=== PATIENT | female | born 1975 | race Caucasian/White ===

== ENCOUNTER 2016-11-25 23:05 | Inpatient (IN) | payer BC ==
[~2016-11-25] VITALS: Ht 162.6 cm; Wt 71.4 kg
[2016-11-25 23:37] LABS: microscopic required? NO
[2016-11-25 23:44] LABS: UA SPECIFIC GRAVITY <=1.005 (1.005-1.035); urine erythrocyte NEGATIVE (NEGATIVE)
[2016-11-25 23:52] LABS: BASOPHIL % 0.2 % (0-2); PLATELET COUNT 223 x10^3mcL (130-400); RED CELL DISTRIBUTION WIDTH 14.4 % (11.5-14.5)
[2016-11-25 23:55] LABS: CARBON DIOXIDE 25.6 mmol/L (21-32); CHLORIDE SERUM 106 mmol/L (98-107); CREATININE SERUM 0.7 mg/dL (0.6-1.0); GFR1 > 60 mL/min; GLUCOSE SERUM 118 mg/dL (74-106); SODIUM SERUM 138 mmol/L (136-145)
[2016-11-26 00:06] LABS: ALBUMIN 3.6 g/dL (3.4-5.0); ALKALINE PHOSPHATASE 41 U/L (46-116); ALT/SGPT 23 U/L (14-59); AST/SGOT 10 U/L (15-37); BILIRUBIN TOTAL 0.8 mg/dL (0.20-1.00); TOTAL PROTEIN, SERUM 6.7 g/dL (6.4-8.2)
[2016-11-26 01:38] LABS: FREE T4 0.97 ng/dL (0.76-1.46); FREE THYROXINE INDEX 2.4 ug/dL (1.4-4.5); T4(THYROXINE) 7.1 ug/dL (4.7-13.3)
[2016-11-26] MEDS ORDERED: CELEBREX200 MG PO (02:48)
[2016-11-26] MEDS ORDERED: HYDROCORTISONE PO (02:48)
[2016-11-26] MEDS ORDERED: NATURAL IRON65 MG PO (02:49)
[2016-11-26 03:15] VITALS: BP 117/55
[2016-11-26 03:15] LABS: MAGNESIUM 1.8 mg/dL (1.8-2.4); PHOSPHOROUS 3.1 mg/dL (2.5-4.9)
[2016-11-26 04:04] VITALS: BP 117/55
[2016-11-26 07:01] LABS: CALCIUM 8.3 mg/dL (8.5-10.1); CARBON DIOXIDE 25.1 mmol/L (21-32); CHLORIDE SERUM 104 mmol/L (98-107); CREATININE SERUM 0.7 mg/dL (0.6-1.0); GFR1 > 60 mL/min; GLUCOSE SERUM 135 mg/dL (74-106); MAGNESIUM 1.6 mg/dL (1.8-2.4); POTASSIUM SERUM 3.8 mmol/L (3.5-5.1); SODIUM SERUM 138 mmol/L (136-145)
[2016-11-26 07:38] LABS: BASOPHIL % 0.1 % (0-2); PLATELET COUNT 221 x10^3mcL (130-400); RED CELL DISTRIBUTION WIDTH 14.4 % (11.5-14.5)
[2016-11-26 07:45] VITALS: BP 124/77
[2016-11-26 08:52] LABS: AMPHETAMINE QUAL UR NONE DETECTED (NEG <=1000)
[2016-11-26 14:42] LABS: T3 TOTAL 0.82 ng/mL
[2016-11-26 17:00] VITALS: BP 118/67
[2016-11-26 22:22] VITALS: BP 113/62
[2016-11-27 05:57] VITALS: BP 109/56
[2016-11-27 06:13] LABS: BASOPHIL % 0.2 % (0-2); PLATELET COUNT 218 x10^3mcL (130-400); RED CELL DISTRIBUTION WIDTH 14.5 % (11.5-14.5)
[2016-11-27 06:28] LABS: CALCIUM 8.4 mg/dL (8.5-10.1); CARBON DIOXIDE 23.7 mmol/L (21-32); CHLORIDE SERUM 107 mmol/L (98-107); CREATININE SERUM 0.6 mg/dL (0.6-1.0); GFR1 > 60 mL/min; GLUCOSE SERUM 141 mg/dL (74-106); MAGNESIUM 1.7 mg/dL (1.8-2.4); PHOSPHOROUS 2.5 mg/dL (2.5-4.9); POTASSIUM SERUM 3.4 mmol/L (3.5-5.1); SODIUM SERUM 141 mmol/L (136-145)
[2016-11-27 09:46] VITALS: BP 134/74
== END 2016-11-27 12:00 | disposition left against medical advice (07) | DRG 643 ==
LOC: ED 23:05 → DU 11-26 02:20 → MU 11-26 13:59 → DU 11-26 17:12
PROVIDERS: Emergency Medicine; ADMIT Family Medicine
DX: E27.1 Primary adrenocortical insufficiency (principal); G92 Toxic encephalopathy; T38.0X5A Adverse effect of glucocorticoids and synthetic analogues, initial encounter; E02 Subclinical iodine-deficiency hypothyroidism; E78.5 Hyperlipidemia, unspecified; Z90.710 Acquired absence of both cervix and uterus; Z91.19 Patient's noncompliance with other medical treatment and regimen; Y92.89 Other specified places as the place of occurrence of the external cause
CPT/HCPCS: 83880; 84439; J1720; J2405; J7030; Q0092